=== PATIENT | male | born 1985 | race African-American/Black ===

== ENCOUNTER 2016-07-01 06:38 | Emergency (ER) | payer MEDICAID ==
[~2016-07-01] VITALS: Ht 177.8 cm; Wt 72.6 kg
[~2016-07-01 06:38] MED LIST: LISI-600 PO; PRED20TA PO
[2016-07-01 06:44] VITALS: BP 151/102; PULSE 115; RESP 18; TEMP 98.5; O2SAT 99
--- NOTE | 2016-07-01 06:50 | NUR ---
Patient to ER bed 06 to gown for evaluation. Side rails up.
--- NOTE | 2016-07-01 06:52 | NUR ---
pt c/o headaches and sore throat 11/02 with cough x 1 week. denies fever. has not been taking any medication for symptoms. denies SOB. also reporting he has run out of his blood pressure medications.
[2016-07-01] MEDS ORDERED: KETOROLAC TROMETHAMINE 60 MG/2 ML VIAL IM ONE (07:30)
[2016-07-01] MEDS ORDERED: cefTRIAXone 1 GM in LIDOCAINE 1%, 20 ML MDV 2.1 ML IM ONE (07:30)
--- NOTE | 2016-07-01 07:30 | NUR ---
Pt medicated tolerated well.
[2016-07-01] MEDS ORDERED: LIDOCAINE 1%, 20 ML MDV 20 ML ONE (07:36)
[2016-07-01 07:50] VITALS: BP 145/90; PULSE 89; RESP 18; TEMP 98.5; O2SAT 99
--- NOTE | 2016-07-01 07:50 | NUR ---
Patient given written and verbal discharge instructions and verbalizes understanding. ER MD discussed with patient the results and treatment provided. Given copies of tests performed in ER. Patient in stable condition. ID arm band removed. Rx of naprosyn,augmentin given. Patient educated on pain management and to follow up with PMD. Pain Scale 0. Opportunity for questions provided and answered.
== END 2016-07-01 07:50 | disposition home or self-care (01) ==
LOC: SED 06:38
DX: J06.9 Acute upper respiratory infection, unspecified (principal); K21.9 Gastro-esophageal reflux disease without esophagitis; I10 Essential (primary) hypertension; K58.9 Irritable bowel syndrome, unspecified; Z88.1 Allergy status to other antibiotic agents
CPT/HCPCS: 96372; 99284; J1885; J2001

== ENCOUNTER 2016-07-16 04:43 | Emergency (ER) | payer MEDICAID ==
[~2016-07-16] VITALS: Ht 177.8 cm; Wt 68.0 kg
[2016-07-16 04:44] VITALS: BP 153/110; PULSE 102; RESP 18; TEMP 98.4; O2SAT 97
[2016-07-16] MEDS ORDERED: IBUPROFEN 800 MG TABLET PO ONE (05:00)
[2016-07-16] MEDS ORDERED: LIDOCAINE VISCOUS 2%, 15 ML UDC MM ONE (05:00)
[2016-07-16] MEDS ORDERED: AMOXICILLIN 500 MG CAPSULE PO ONE (05:00)
[2016-07-16 05:10] VITALS: BP 136/80; PULSE 90; RESP 18; TEMP 98.4; O2SAT 97
== END 2016-07-16 05:10 | disposition home or self-care (01) ==
LOC: SED 04:43
DX: J02.9 Acute pharyngitis, unspecified (principal); K21.9 Gastro-esophageal reflux disease without esophagitis; I10 Essential (primary) hypertension; Z88.1 Allergy status to other antibiotic agents
CPT/HCPCS: 99283; J2001

== ENCOUNTER 2016-07-23 23:32 | Emergency (ER) | payer MEDICAID ==
[~2016-07-23] VITALS: Ht 177.8 cm; Wt 68.0 kg
[2016-07-23 23:32] VITALS: BP 147/82; PULSE 83; RESP 16; TEMP 98.2; O2SAT 99
--- NOTE | 2016-07-23 23:32 | NUR ---
Pt ambulatory to bed 7 accompanied by girlfriend. Report given to GORDON Nails.
--- NOTE | 2016-07-23 23:35 | NUR ---
Pt states that he has been having 10/10 rectal pain for three days. Pain with BM and ambulation. Will continue to monitor. No distress noted. AAOx4.
--- NOTE | 2016-07-23 23:49 | NUR ---
Dr. Luna at bedside to examine pt and discuss plan of care.
[2016-07-24] MEDS ORDERED: HYDROcodone/ACETAMIN 5-325 MG TAB (NORCO/ VICODIN) PO ONE
[2016-07-24] MEDS ORDERED: HYDROCORTISONE ACETATE 1 SUPP (ANUSOL HC) RC ONE ×2 (00:17)
[2016-07-24 00:25] VITALS: BP 147/82; PULSE 74; RESP 16; TEMP 98.2; O2SAT 99
--- NOTE | 2016-07-24 00:25 | NUR ---
Patient given written and verbal discharge instructions and verbalizes understanding. ER MD discussed with patient the results and treatment provided. Patient in stable condition. ID arm band removed. Rx of Anusol, colace, and norco given. Patient educated on pain management and to follow up with PMD. Pain Scale 2/10. Opportunity for questions provided and answered.
== END 2016-07-24 00:25 | disposition home or self-care (01) ==
LOC: SED 23:32
DX: K64.9 Unspecified hemorrhoids (principal); K21.9 Gastro-esophageal reflux disease without esophagitis; I10 Essential (primary) hypertension; Z88.1 Allergy status to other antibiotic agents
CPT/HCPCS: 99283

== ENCOUNTER 2018-08-02 11:39 | Emergency (ER) | payer MEDICAID ==
[~2018-08-02] VITALS: Ht 177.8 cm; Wt 81.6 kg
[2018-08-02 11:39] VITALS: BP_SYST 152
[2018-08-02] MEDS ORDERED: TETRACAINE HCL 0.5% OPHTHALMIC DROPS 15 ML OP ONE (11:40)
[2018-08-02] MEDS ORDERED: FLUORESCEIN SODIUM 1 MG OPHTHALMIC STRIP OP ONE (11:40)
[2018-08-02] MEDS ORDERED: BALANCED SALT IRRIG SOLN 15 ML IO ONE (11:40)
[2018-08-02 12:56] VITALS: BP_SYST 152
== END 2018-08-02 12:56 | disposition home or self-care (01) ==
LOC: SED 11:39
DX: H10.89 Other conjunctivitis (principal); K21.9 Gastro-esophageal reflux disease without esophagitis; I10 Essential (primary) hypertension; Z88.1 Allergy status to other antibiotic agents; Z79.899 Other long term (current) drug therapy
CPT/HCPCS: 99283

== ENCOUNTER 2018-10-02 14:46 | Emergency (ER) | payer MEDICAID ==
[~2018-10-02] VITALS: Ht 177.8 cm; Wt 77.1 kg
[2018-10-02 15:02] VITALS: BP_SYST 153
[2018-10-02 18:46] VITALS: BP_SYST 142
== END 2018-10-02 18:46 | disposition home or self-care (01) ==
LOC: SED 14:46
DX: B34.9 Viral infection, unspecified (principal); R50.9 Fever, unspecified; K21.9 Gastro-esophageal reflux disease without esophagitis; I10 Essential (primary) hypertension; F17.200 Nicotine dependence, unspecified, uncomplicated; Z88.1 Allergy status to other antibiotic agents; Z79.899 Other long term (current) drug therapy
CPT/HCPCS: 36415; 86710; 99283

== ENCOUNTER 2018-10-19 07:21 | Emergency (ER) | payer MEDICAID ==
[~2018-10-19] VITALS: Ht 177.8 cm; Wt 77.1 kg
[2018-10-19 07:26] VITALS: BP_SYST 172
[2018-10-19] MEDS ORDERED: NACL 0.9% 1,000 ML IV ONE (07:37)
[2018-10-19 08:13] LABS: BASOPHILS % (AUTO) 0.6 % (0.0-2.0); EOSINOPHILS % (AUTO) 0.1 % (0.0-4.0); HEMATOCRIT 44.1 % (36-54); HEMOGLOBIN 14.8 g/dL (14.0-18.0); LYMPHOCYTES # (AUTO) 0.4 K/uL (1.0-5.5); LYMPHOCYTES % (AUTO) 6.5 % (20.5-51.5); MEAN CORPUSCULAR HEMOGLOBIN 31 pg (27-31); MEAN CORPUSCULAR HGB CONC 34 % (32-36); MEAN CORPUSCULAR VOLUME 91 fL (79.0-98.0); MONOCYTES # (AUTO) 0.5 K/uL (0.0-1.0); MONOCYTES % (AUTO) 7.3 % (1.7-9.3); NEUTROPHILS # (AUTO) 5.7 K/uL (1.8-7.7); NEUTROPHILS % (AUTO) 85.5 % (40.0-70.0); PLATELET COUNT (AUTO) 347 K/uL (130-430); RED BLOOD CELL COUNT(AUTO) 4.85 MIL/uL (4.2-6.2); RED CELL DISTRIBUTION WIDTH 14.7 % (9.0-15.0); WHITE BLOOD COUNT (AUTO) 6.7 K/uL (4.8-10.8)
[2018-10-19 08:17] LABS: CREATININE 1.17 mg/dL (0.55-1.30); POTASSIUM 4.1 mmol/L (3.5-5.1)
[2018-10-19 08:23] LABS: ALBUMIN 3.9 g/dL (3.4-4.8); TOTAL BILIRUBIN 0.2 mg/dL (0.0-1.0)
[2018-10-19 09:23] VITALS: BP_SYST 164
== END 2018-10-19 09:24 | disposition home or self-care (01) ==
LOC: SED 07:21
DX: E86.0 Dehydration (principal); K21.9 Gastro-esophageal reflux disease without esophagitis; I10 Essential (primary) hypertension; Z88.1 Allergy status to other antibiotic agents; Z79.899 Other long term (current) drug therapy
CPT/HCPCS: 36415; 80053; 83690; 85025; 93005; 99284; 96360; G0482; J7030

== ENCOUNTER 2019-03-17 04:09 | Emergency (ER) | payer MEDICAID ==
[~2019-03-17] VITALS: Ht 177.8 cm; Wt 68.0 kg
[2019-03-17 04:25] VITALS: BP_SYST 166
--- NOTE | 2019-03-17 04:25 | NUR ---
Patient to ER bed 5 to gown for evaluation. Side rails up.
--- NOTE | 2019-03-17 04:32 | NUR ---
Patient complains of neck pain, dizziness, bilateral ringing in the ear and pressure to both intermittently. Per patient, he had about four beers last night and went home to sleep, and suddenly woke up to feeling dizzy. Pt also states that his ear would feel pressure "as if I was in the airplane." Pt denies N/V, fever. No other injuries/complaints per patient or noted.
--- NOTE | 2019-03-17 04:49 | NUR ---
ER Dr. Blackmon at bedside examining patient.
[2019-03-17] MEDS ORDERED: NACL 0.9% 1,000 ML IV ONE (04:54)
[2019-03-17 05:39] LABS: BASOPHILS # (AUTO) 0.1 K/uL (0.0-0.2); BASOPHILS % (AUTO) 1.8 % (0.0-2.0); EOSINOPHILS # (AUTO) 0.1 K/uL (0.0-0.4); EOSINOPHILS % (AUTO) 1.8 % (0.0-4.0); HEMATOCRIT 43.9 % (36-54); HEMOGLOBIN 14.8 g/dL (14.0-18.0); LYMPHOCYTES # (AUTO) 0.7 K/uL (1.0-5.5); MEAN CORPUSCULAR HEMOGLOBIN 32 pg (27-31); MEAN CORPUSCULAR HGB CONC 34 % (32-36); MEAN CORPUSCULAR VOLUME 94 fL (79.0-98.0); MONOCYTES # (AUTO) 0.7 K/uL (0.0-1.0); MONOCYTES % (AUTO) 12.6 % (1.7-9.3); NEUTROPHILS # (AUTO) 3.9 K/uL (1.8-7.7); NEUTROPHILS % (AUTO) 70.8 % (40.0-70.0); PLATELET COUNT (AUTO) 358 K/uL (130-430); RED BLOOD CELL COUNT(AUTO) 4.68 MIL/uL (4.2-6.2); RED CELL DISTRIBUTION WIDTH 13.9 % (9.0-15.0); WHITE BLOOD COUNT (AUTO) 5.6 K/uL (4.8-10.8)
[2019-03-17 05:45] LABS: ANION GAP 7 (5-15); CALCIUM 8.7 mg/dL (8.4-11.0); CHLORIDE 97 mmol/L (98-107); CREATININE 1.06 mg/dL (0.55-1.30); GLUCOSE 90 mg/dL (70-99); POTASSIUM 3.4 mmol/L (3.5-5.1); SODIUM SERUM 133 mmol/L (136-145); UREA NITROGEN, BLOOD 9 mg/dL (8-21)
[2019-03-17 05:49] LABS: ALANINE AMINOTRANSFERASE 19 U/L (12-78); ASPARTATE AMINOTRANSFERASE 13 U/L (10-37); TOTAL BILIRUBIN 0.6 mg/dL (0.0-1.0)
[2019-03-17 05:54] LABS: ALCOHOL, BLOOD < 3 mg/dL (<10); GFR AFRICAN AMERICAN 103 mL/min (>90)
--- NOTE | 2019-03-17 06:23 | NUR ---
ER Dr. Blackmon at bedside explaining results to patient.
[2019-03-17 06:47] VITALS: BP_SYST 144
--- NOTE | 2019-03-17 06:47 | NUR ---
Patient given written and verbal discharge instructions and verbalizes understanding. ER MD discussed with patient the results and treatment provided. Patient in stable condition. ID arm band removed. IV catheter removed intact and dressing applied, no active bleeding. No Rx given. Patient educated on pain management and to follow up with PMD. Pain Scale 0. Opportunity for questions provided and answered. Medication side effect fact sheet provided.
== END 2019-03-17 06:47 | disposition home or self-care (01) ==
LOC: SED 04:09
DX: R42 Dizziness and giddiness (principal); I10 Essential (primary) hypertension; M54.2 Cervicalgia; F17.290 Nicotine dependence, other tobacco product, uncomplicated
CPT/HCPCS: 36415; 72040; 80053; 85025; 93005; 96360; 96361; 99284; G0482; J7030

== ENCOUNTER 2019-06-07 03:29 | Emergency (ER) | payer MEDICAID ==
[~2019-06-07] VITALS: Ht 180.3 cm; Wt 68.0 kg
[2019-06-07 03:29] VITALS: BP_SYST 116
[2019-06-07] MEDS: NACL 0.9% 1,000 ML IV ONE (06:13)
[2019-06-07 06:29] LABS: BASOPHILS % (AUTO) 0.5 % (0.0-2.0); EOSINOPHILS % (AUTO) 0.2 % (0.0-4.0); HEMATOCRIT 42.4 % (36-54); HEMOGLOBIN 14.5 g/dL (14.0-18.0); LYMPHOCYTES # (AUTO) 0.5 K/uL (1.0-5.5); LYMPHOCYTES % (AUTO) 7.2 % (20.5-51.5); MEAN CORPUSCULAR HEMOGLOBIN 31 pg (27-31); MEAN CORPUSCULAR HGB CONC 34 % (32-36); MEAN CORPUSCULAR VOLUME 92 fL (79.0-98.0); MONOCYTES # (AUTO) 1.1 K/uL (0.0-1.0); MONOCYTES % (AUTO) 16.7 % (1.7-9.3); NEUTROPHILS # (AUTO) 5.1 K/uL (1.8-7.7); NEUTROPHILS % (AUTO) 75.4 % (40.0-70.0); PLATELET COUNT (AUTO) 312 K/uL (130-430); RED BLOOD CELL COUNT(AUTO) 4.64 MIL/uL (4.2-6.2); RED CELL DISTRIBUTION WIDTH 13.8 % (9.0-15.0); WHITE BLOOD COUNT (AUTO) 6.8 K/uL (4.8-10.8)
[2019-06-07 06:34] LABS: ANION GAP 10 (5-15); CALCIUM 10.4 mg/dL (8.4-11.0); CHLORIDE 99 mmol/L (98-107); CREATININE 1.01 mg/dL (0.55-1.30); GLUCOSE 88 mg/dL (70-99); POTASSIUM 3.8 mmol/L (3.5-5.1); SODIUM SERUM 135 mmol/L (136-145); UREA NITROGEN, BLOOD 15 mg/dL (8-21)
[2019-06-07 06:40] LABS: GFR AFRICAN AMERICAN 109 mL/min (>90)
[2019-06-07 06:46] LABS: ALANINE AMINOTRANSFERASE 48 U/L (12-78); ALBUMIN 3.9 g/dL (3.4-4.8); ASPARTATE AMINOTRANSFERASE 25 U/L (10-37); TOTAL BILIRUBIN 0.3 mg/dL (0.0-1.0)
[2019-06-07 08:23] VITALS: BP_SYST 135
== END 2019-06-07 08:23 | disposition home or self-care (01) ==
LOC: SED 03:29
DX: R51 Headache (principal); W18.39XA Other fall on same level, initial encounter; Y93.89 Activity, other specified; Y92.89 Other specified places as the place of occurrence of the external cause; Y99.8 Other external cause status
CPT/HCPCS: 36415; 70450; 71045; 80053; 84484; 85025; 93005; 99284; J7030

== ENCOUNTER 2020-11-15 04:45 | Emergency (ER) | payer SELFPAY ==
[~2020-11-15] VITALS: Ht 180.3 cm; Wt 92.1 kg
[~2020-11-15 04:45] MED LIST changes: -LISI-600 PO; +LISI20TA30 PO
[2020-11-15 05:00] VITALS: BP_SYST 179
[2020-11-15] MEDS ORDERED: PHENAZOPYRIDINE HCL 100 MG TABLET PO ONE (05:15)
[2020-11-15] MEDS ORDERED: AZITHROMYCIN 250 MG TABLET PO ONE (05:15)
[2020-11-15] MEDS ORDERED: cefTRIAXone 1 GM VIAL IM ONE (05:15)
[2020-11-15] MEDS ORDERED: LIDOCAINE 1%, 20 ML MDV 20 ML ONE (05:54)
[2020-11-15 06:03] LABS: BILIRUBIN,URINE NEGATIVE (NEGATIVE); BLOOD, URINE NEGATIVE (NEGATIVE); CLARITY/URINE CLEAR (CLEAR); COLOR,URINE YELLOW (YELLOW); GLUCOSE,URINE NEGATIVE (NEGATIVE); KETONES,URINE NEGATIVE (NEGATIVE); LEUKOCYTE ESTERASE ,URINE NEGATIVE (NEGATIVE); NITRITE, URINE NEGATIVE (NEGATIVE); PROTEIN URINE NEGATIVE (NEGATIVE); UROBILINOGEN,URINE 0.2 (0.2-1.0)
[2020-11-15 06:44] VITALS: BP_SYST 145
[2020-11-17 03:07] LABS: CHLAMYDIA TRACHOMATIS NAA Negative (Negative); NEISSERIA GONORRHOEAE NAA Negative (Negative)
== END 2020-11-15 06:44 | disposition home or self-care (01) ==
LOC: SED 04:45
DX: N48.89 Other specified disorders of penis (principal); R30.0 Dysuria; I10 Essential (primary) hypertension; K21.9 Gastro-esophageal reflux disease without esophagitis; Z88.1 Allergy status to other antibiotic agents; Z79.899 Other long term (current) drug therapy
CPT/HCPCS: 36415; 81003; 86592; 86701; 86702; 87210; 87491; 87529 ×2; 87591; 96372; 99283; J0696; J2001; Q0144

== ENCOUNTER 2020-11-20 00:16 | Emergency (ER) | payer SELFPAY ==
[~2020-11-20] VITALS: Ht 180.3 cm; Wt 92.1 kg
[2020-11-20 00:24] VITALS: BP_SYST 190
--- NOTE | 2020-11-20 00:24 | NUR ---
Patient to ER bed 5 to gown for evaluation. Side rails up.
--- NOTE | 2020-11-20 00:28 | NUR ---
Patient BIB by family from home. C/O re-check x today. Per patient reported, came to ER on 11/15/20, Dr. Hawkins called him to follow up for HIV test and Rx Syphilis. A/O,X4, vss, no pain.
--- NOTE | 2020-11-20 01:09 | NUR ---
LUZ Jimenez at bedside examining patient.
[2020-11-20] MEDS ORDERED: PENICILLIN G BENZATHINE 1.2 MMU/2 ML SYR IM ONE (01:15)
[2020-11-20 02:00] VITALS: BP_SYST 190
--- NOTE | 2020-11-20 02:00 | NUR ---
Patient given written and verbal discharge instructions and verbalizes understanding. DR.RHEE LUZ PATTERSON discussed with patient the results and treatment provided. Patient in stable condition. ID arm band removed. Patient educated on pain management and to follow up with PMD. Pain Scale 0/10 Opportunity for questions provided and answered. Medication side effect fact sheet provided.
== END 2020-11-20 02:00 | disposition home or self-care (01) ==
LOC: SED 00:16
DX: A51.0 Primary genital syphilis (principal); Z88.1 Allergy status to other antibiotic agents; Z79.899 Other long term (current) drug therapy
CPT/HCPCS: 96372; 99283; J0561

== ENCOUNTER 2020-12-31 07:02 | Emergency (ER) | payer MEDICAID ==
[~2020-12-31] VITALS: Ht 177.8 cm; Wt 89.8 kg
--- NOTE | 2020-12-31 07:10 | NUR ---
Patient to ER bed 7 to gown for evaluation. Side rails up.
[2020-12-31 07:14] VITALS: BP_SYST 189
--- NOTE | 2020-12-31 07:15 | NUR ---
Pt walked in to ER with c/o swelling and itchiness noted to penial shaft x2 days. Denies any pain or urinary sypmtoms at this time. V/S stable, no acute distress noted.
--- NOTE | 2020-12-31 07:20 | NUR ---
ER Dr. Johnson at bedside examining patient.
[2020-12-31] MEDS ORDERED: ACYC400T19 PO (07:31)
[2020-12-31] MEDS: PENICILLIN G BENZATHINE 1.2 MMU/2 ML SYR IM ONE (07:41)
[2020-12-31 07:42] LABS: BILIRUBIN,URINE NEGATIVE (NEGATIVE); BLOOD, URINE NEGATIVE (NEGATIVE); CLARITY/URINE CLEAR (CLEAR); COLOR,URINE YELLOW (YELLOW); GLUCOSE,URINE NEGATIVE (NEGATIVE); KETONES,URINE NEGATIVE (NEGATIVE); LEUKOCYTE ESTERASE ,URINE NEGATIVE (NEGATIVE); NITRITE, URINE NEGATIVE (NEGATIVE); PROTEIN URINE NEGATIVE (NEGATIVE); UROBILINOGEN,URINE 0.2 (0.2-1.0)
[2020-12-31 07:56] VITALS: BP_SYST 189
--- NOTE | 2020-12-31 07:56 | NUR ---
Patient given written and verbal discharge instructions and verbalizes understanding. ER MD discussed with patient the results and treatment provided. Patient in stable condition. ID arm band removed. Rx of Acyclovir given. Patient educated on pain management and to follow up with PMD. Pain Scale 0. Opportunity for questions provided and answered. Medication side effect fact sheet provided.
== END 2020-12-31 07:56 | disposition home or self-care (01) ==
LOC: SED 07:02
DX: B00.9 Herpesviral infection, unspecified (principal); A64 Unspecified sexually transmitted disease; Z88.1 Allergy status to other antibiotic agents; Z79.899 Other long term (current) drug therapy
CPT/HCPCS: 81003; 96372; 99283; J0561